=== PATIENT | female | born 1935 | race Caucasian/White ===

== ENCOUNTER → 2017-08-13 | Outpatient (CLI) | payer OTHER, MEDICARE | LOC: CIMAGING 12:44 | PROVIDERS: ATTEND Internal Medicine | DX: Z12.39 Encounter for other screening for malignant neoplasm of breast (principal); N64.4 Mastodynia | CPT/HCPCS: 76641; G0204 ==

== ENCOUNTER → 2017-10-31 | Outpatient (CLI) | payer OTHER, MEDICARE | LOC: BHFA 11:30 | PROVIDERS: ATTEND Internal Medicine Interventional Cardiology | DX: I25.10 Atherosclerotic heart disease of native coronary artery without angina pectoris (principal); I35.0 Nonrheumatic aortic (valve) stenosis ==

== ENCOUNTER → 2018-01-22 | Outpatient (CLI) | payer OTHER, MEDICARE | LOC: BHFA 10:45 | PROVIDERS: ATTEND Internal Medicine Cardiovascular Disease | DX: I35.9 Nonrheumatic aortic valve disorder, unspecified (principal); I25.10 Atherosclerotic heart disease of native coronary artery without angina pectoris ==

== ENCOUNTER 2018-02-17 06:17 | Day surgery (SDC) | payer OTHER, MEDICARE ==
[2018-02-17] MEDS ORDERED: FAMOTIDINE 20 MG TAB PO ONE (06:20)
[2018-02-17] MEDS ORDERED: diphenhydrAMINE 25 MG CAP PO ONE ×2 (06:20→06:45)
[2018-02-17] MEDS ORDERED: ASPIRIN EC 325 MG TAB PO ONE ×2 (06:20→06:45)
[2018-02-17] MEDS ORDERED: NS 1,000 ML IV ONE (06:20)
[2018-02-17] MEDS ORDERED: DIAZEPAM 5 MG TAB PO ONE (06:20)
--- NOTE | 2018-02-17 06:44 | PDPROPOC ---
Sedation Plan of Care Sedation Plan of Care: mental status noted, patient educated of risks, benefits , alternatives, patient can tolerate sedation ASA Classification: ASA 2 Planned drugs: fentanyl, midazolam Mallampati Score: Class 2 Mallampati Reference Image: Patient passed 3-3-2 rule?: Yes
--- NOTE | 2018-02-17 06:44 | PDHPUP ---
History & Physical Update H&P update statement: This history and physical update is based on an assessment of the patient which was completed after admission or registration (within 24 hours), but prior to the surgery/procedure. H&P update: H&P reviewed & patient examined, no change in patient's condition since H&P completed
[2018-02-17] MEDS ORDERED: CLOPIDOGREL BISULFATE 75 MG TAB PO ONE (06:45)
[2018-02-17] MEDS ORDERED: FAMOTIDINE 20 MG TAB ONE (06:45)
[2018-02-17] MEDS ORDERED: DIAZEPAM 5 MG TAB ONE (06:45)
--- NOTE | 2018-02-17 06:45 | CPEKG ---
Heart Rate: 65 RR Interval: 923 P-R Interval: 148 QRSD Interval: 92 QT Interval: 420 QTC Interval: 437 P [place]: 54 QRS [place]: 4 T Wave [place]: 52 EKG Severity - ABNORMAL ECG - EKG Impression: SINUS RHYTHM EKG Impression: PROBABLE LVH WITH SECONDARY REPOL ABNRM Electronically Signed By: Leif Samayoa 17-Feb-2018 13:06:43
[2018-02-17 06:59] LABS: PLATELET COUNT 185 10^3/uL (150-400)
[2018-02-17] MEDS ORDERED: LIDOCAINE 1% 300 MG/30 ML SDV ONE (07:03)
[2018-02-17] MEDS ORDERED: MIDAZOLAM 2 MG/2 ML VIAL ONE (07:03)
[2018-02-17] MEDS ORDERED: fentaNYL 100 MCG/2 ML INJ ONE (07:03)
[2018-02-17] MEDS ORDERED: IOPAMIDOL (ISOVUE-370) 150 ML BTL IV ONE (07:04)
[2018-02-17 07:22] LABS: INR 0.94 (0.83-1.16); PROTIME(PATIENT) 12.8 SEC (12.0-15.0)
[2018-02-17] MEDS ORDERED: METOPROLOL TARTRATE 5 MG/5 ML INJ ONE (07:56)
[2018-02-17] MEDS ORDERED: hydrALAZINE 20 MG/ML VIAL ONE (08:06)
[2018-02-17] MEDS ORDERED: ATROPINE SULFATE 1 MG/10 ML SYR IVP PRN (08:14)
[2018-02-17] MEDS ORDERED: NITROGLYCERIN 0.4 MG BTL SL PRN (08:14)
[2018-02-17] MEDS ORDERED: ONDANSETRON 4 MG/2 ML VIAL IVP PRN (08:14)
--- NOTE | 2018-02-17 09:02 | CPIP ---
[f rep st] INVASIVE CARDIAC PROCEDURE DATE OF PROCEDURE: 02/17/2018 REASON FOR PROCEDURE: Critical aortic stenosis, known coronary artery disease. PROCEDURE: 1. Nonselective left groin sheathogram. Seven-Japanese sheath left common vein. 2. Right heart catheterization Repton-Kristina catheter. 3. Bilateral coronary angiography. 4. Saphenous vein angiography to OM1. 5. Left internal mammary artery angiography to LAD. 6. Abdominal aortogram. Briefly, this is an 82-year-old female with history of CABG as well as critical aortic stenosis. The patient underwent a workup as an outpatient by Dr. Persaud and Dr. Russell and was deemed to be a suit able candidate for TAVR. The patient, after informed consent was obtained, was brought to [facility] where the left groin was prepped and draped in sterile fashion. Using lidocaine, a short 6-Japanese sheath l eft femoral artery verified angiographically. A 7-Japanese sheath left common vein. Through the 7-Breezy counts include [facility] beds at the [facility] sheath, a right heart catheter was advanced. RA pressure was measured to be A-wave of 5, V-wave of 3, RV pressure of systolic 32, diastolic 1, PA pressure 30 with diastolic of 8 with a mean of 13. Wedge pressure was measured to be an A-wave of 5, V-wave of 5. Cardiac output was measured to be 3. 4 by Jomar with a cardiac index of 1.9. Right heart catheter was then removed. A JL4 catheter was th en advanced to the left coronary artery. Images of the left coronary artery showed 60% ostial left m ain with no damping of pressure. There was a small diminutive AV groove circumflex with an occluded 100% OM1 proximally. The LAD gave off what appeared to be a diagonal artery proximally and was occlu ded after its proximal takeoff with some competitive flow from a graft. After imaging was obtained t he JL4 catheter was removed. The JR4 catheter was advanced to the right coronary artery. Images of the right coronary artery revealed normal ostial RCA. In the mid RCA there was a 40% to 50% lesion, which was consistent with her prior angiograms in 2016. Distally, the RP and RPLS had 20% to 30% jareth que disease. After the images were obtained, the JR4 catheter was pulled back to the 1st graft which was a saphenous vein graft to a marginal 1 artery. The saphenous vein graft ostial had approximatel y 30% disease, but no damping of pressure with good reflux. Distally the OM1 graft artery appeared t o be widely patent. The catheter was then pulled back, placed in the left subclavian artery, exchang ed out for a HEALY catheter. Angiography of left internal mammary artery showed widely patent HEALY an astomosing into the mid LAD. The LAD distally appeared to be a small vessel but patent giving off a diagonal artery in its midportion, which was healthy and free of disease. After imaging was obtained the HEALY catheter was removed. A pigtail catheter was advanced to the descending aorta. Abdominal aortogram was obtained which showed a widely patent distal ascending aorta, widely patent common exte rnal and internal iliac arteries and widely patent CFAs' bilaterally. After the imaging was obtained the pigtail catheter was removed over the 0.035 wire. Left groin was closed with manual pressure. Patient tolerated the procedure well with no complications. IMPRESSION: 1. Severe [place] coronary artery disease. 2. Patent 2/2 bypass grafts. 3. Normal right heart pressures. 4. Mildly reduced cardiac output. PLAN: Approximately 50 cc of contrast was utilized during the procedure. Patient will have CTAs of the chest, abdomen, and pelvis, as well as carotid ultrasounds performed later today. /[id number]/MODL
[2018-02-17] MEDS ORDERED: IOPAMIDOL (ISOVUE 370) 100 ML BTL IV ONE (12:29)
== END 2018-02-17 13:30 | disposition home or self-care (01) ==
LOC: FCATH 06:17
PROVIDERS: ATTEND Internal Medicine Cardiovascular Disease
PROC: B4101ZZ Fluoroscopy of Abdominal Aorta using Low Osmolar Contrast (ICD-10-PCS; principal; 2018-02-17)
PROC: B2141ZZ Fluoroscopy of Right Heart using Low Osmolar Contrast (ICD-10-PCS; principal; 2018-02-17)
PROC: B2131ZZ Fluoroscopy of Multiple Coronary Artery Bypass Grafts using Low Osmolar Contrast (ICD-10-PCS; principal; 2018-02-17)
DX: I35.0 Nonrheumatic aortic (valve) stenosis (principal); I25.10 Atherosclerotic heart disease of native coronary artery without angina pectoris; I10 Essential (primary) hypertension; E11.9 Type 2 diabetes mellitus without complications; E78.5 Hyperlipidemia, unspecified; J84.9 Interstitial pulmonary disease, unspecified; Z95.1 Presence of aortocoronary bypass graft; Z90.710 Acquired absence of both cervix and uterus
CPT/HCPCS: 71275; 74174; 75625; 93005; 93457; 93880; C1769; J0360; J1644; J2250; J3010; Q9967

== ENCOUNTER 2018-03-18 06:02 | Inpatient (IN) | payer OTHER, MEDICARE ==
[2018-03-18] MEDS ORDERED: NS 1,000 ML IV ONE (06:06)
[2018-03-18] MEDS ORDERED: ceFAZolin 2 GM/DEXTROSE 100 ML IV ONE (06:30)
--- NOTE | 2018-03-18 06:31 | PDPROPOC ---
Sedation Plan of Care Sedation Plan of Care: mental status noted, patient educated of risks, benefits , alternatives, patient can tolerate sedation ASA Classification: ASA 2 Planned drugs: other Mallampati Score: Class 2 Mallampati Reference Image: Patient passed 3-3-2 rule?: Yes
--- NOTE | 2018-03-18 06:53 | PDANEPAE ---
ANE History of Present Illness here for TAVR ANE Past Medical History - Cardiovascular History Hx Hypertension: Yes Hx Arrhythmias: No Hx Chest Pain: Yes Hx Coronary Artery / Peripheral Vascular Disease: Yes Hx CHF / Valvular Disease: Yes Hx Palpitations: No - Pulmonary History Hx COPD: No Hx Asthma/Reactive Airway Disease: No Hx Recent Upper Respiratory Infection: No Hx Oxygen in Use at Home: No Hx Sleep Apnea: No - Endocrine History Hx Diabetes: Yes Hypothyroid: No Hyperthyroid: No Obesity: no - Renal History Hx Renal Disorders: No - Chronic Pain History Chronic Pain: No ANE Review of Systems Review of Systems: - Exercise capacity Exercise capacity: <4 METS ANE Patient History - Allergies Allergies/Adverse Reactions: acetaminophen [From Vicodin] Allergy (Verified 02/12/18 10:46) "feel like a zombie" adhesive tape Allergy (Verified 02/12/18 10:46) hydrocodone [From Vicodin] Allergy (Verified 02/12/18 10:46) "feel like a zombie" meperidine HCl [From Demerol] Allergy (Verified 02/12/18 10:46) Vomiting oxycodone HCl [From Percocet] Allergy (Verified 02/12/18 10:46) Itching - Home Medications Home medications: home medication list seen and reviewed Home Medications: Aspirin [Aspirin 81mg (*)] 81 mg PO DAILY 04/14/15 [Last Taken 03/17/18] Atenolol [Tenormin 25 mg (*)] 25 mg PO HS 04/14/15 [Last Taken 03/17/18] Ranolazine [Ranexa] 500 mg PO BID 04/14/15 [Last Taken 03/17/18] guanFACINE HCL [Tenex] 2 mg PO DAILY 04/14/15 [Last Taken 03/17/18] Betahistine Powder 1 jace TP TID 02/12/18 [Last Taken Unknown] Cholecalciferol Vit D3 [Vitamin D3 (*)] 1,000 units PO DAILY 02/12/18 [Last Taken 03/17/18] Esomeprazole Magnesium [Nexium] 20 mg PO HS 02/12/18 [Last Taken 03/17/18] Herbals/Supplements -Info Only 1 ea PO DAILY 02/12/18 [Last Taken 02/16/18] Hydrochlorothiazide [HCTZ (*)] 25 mg PO DAILY 02/12/18 [Last Taken 03/17/18] Rosuvastatin Calcium [Crestor 10mg (RX)] 10 mg PO HS 02/12/18 [Last Taken ] Valsartan [Diovan (*)] 80 mg PO DAILY 02/12/18 [Last Taken 03/17/18] Levothyroxine [Synthroid 50 mcg (*)] 50 mcg PO MOTUWETHFR 03/12/18 [Last Taken 03/17/18] Levothyroxine [Synthroid 50 mcg (*)] 100 mcg PO SUSA@0330 03/12/18 [Last Taken 03/17/18] glipiZIDE [Glipizide] 5 mg PO BID 03/12/18 [Last Taken 03/17/18] - Smoking Hx Smoking Status: Never smoked ANE Labs/Vital Signs - Vital Signs Height: 160 cm Weight: 74.8 kg ANE Physical Exam - Airway Neck exam: FROM Mallampati Score: Class 1 - Pulmonary Pulmonary: no respiratory distress - Cardiovascular Cardiovascular: regular rate and rhythym, systolic murmur - ASA Status ASA Status: IV ANE Anesthesia Plan Anesthesia Plan: general endotracheal anesthesia
[2018-03-18] MEDS ORDERED: IOPAMIDOL (ISOVUE 370) 100 ML BTL IV ONE (06:57)
[2018-03-18] MEDS ORDERED: fentaNYL 100 MCG/2 ML INJ ONE (07:18)
[2018-03-18] MEDS ORDERED: MIDAZOLAM 2 MG/2 ML VIAL ONE (07:19)
[2018-03-18] MEDS ORDERED: PROPOFOL/EMULSION 500 MG/50 ML BOTTLE IV ONE (07:20)
[2018-03-18] MEDS ORDERED: PHENYLEPHRINE HCL 100 MCG/ML SYR ONE (08:15)
[2018-03-18] MEDS ORDERED: HEPARIN 10,000 UNIT/10 ML MDV (1,000 UNIT/ML) ONE (08:17)
[2018-03-18] MEDS ORDERED: SUGAMMADEX SODIUM 200 MG/2 ML VIAL IVP ONE (09:23)
[2018-03-18] MEDS ORDERED: PROTAMINE SULFATE 50 MG/5 ML VIAL IVP ONE (09:32)
[2018-03-18] MEDS ORDERED: IBUPROFEN 800 MG TAB PO PRN (09:44)
[2018-03-18] MEDS ORDERED: ONDANSETRON 4 MG/2 ML VIAL IVP PRN (09:44)
[2018-03-18] MEDS ORDERED: ATROPINE SULFATE 1 MG/10 ML SYR IVP PRN (09:44)
[2018-03-18] MEDS ORDERED: hydrALAZINE 20 MG/ML VIAL IVP PRN (09:44)
[2018-03-18] MEDS ORDERED: ONDANSETRON DISINTEGRATING 4 MG TAB PO PRN (09:44)
--- NOTE | 2018-03-18 10:24 | POSTANESTH ---
Post Anesthetic Evaluation Cardiovascular Status: Normal, Stable Respiratory Status: Normal, Stable Level of Consciousness/Mental Status: Can Participate in Eval Pain Control: Adequate, Prn Tx Ordered Nausea/Vomiting Control: Adequate, Prn Tx Ordered Complications Possibly Related to Anesthesia: None Noted
--- NOTE | 2018-03-18 10:33 | CPIP ---
[f rep st] INVASIVE CARDIAC PROCEDURE DATE OF PROCEDURE: 03/18/2018 CO-SURGEONS: 1. Edgard Russell DO. 2. Mason Lane MD. 3. Juan Lopes MD. PROCEDURE: 1. Nonselective left groin sheathogram. 2. Nonselective right groin sheathogram. 3. Upsize of right groin to 16-Cuban sheath with triple Perclose placements. 4. Left heart catheterization, aortic root angiography. 5. Placement of Medtronic CoreValve Evolut PRO 26 mm valve via the transfemoral route. HISTORY: Briefly, this is an 82-year-old female with history of bypass surgery, renal insufficiency who had worsening shortness of breath. The patient was found to have critical aortic stenosis at non invasive assessment. The patient was evaluated by CT surgery, deemed to be a suitable candidate for transfemoral TAVR. DESCRIPTION OF PROCEDURE: The patient was brought to [facility] where the patient electively intubated. 2 g of Ancef were measured, administered perioperatively. The patient was intubated successfully. SHELIA performed by Dr. Mason Lane. Temporary pace wire placed in the right IJ by Dr. Juan Lopes. A 6- Cuban sheath left femoral artery verified angiographically. A 6-Cuban sheath right femoral artery verified angiographically. Initially attempts were made to make the left common femoral artery acces s site the main body site; however, the Perclose had some difficulty securing this area. Thus, we de cided to keep this as the 8-Cuban sheath site for the pigtail and made the right common femoral carrie ry site the area for the 16-Cuban sheath. The right side was upsized to a 6-Cuban sheath after triple Perclose placements. Pigtail catheter w as advanced through the left common femoral artery to the aortic root. Through the 16-Cuban sheath in the right common femoral side. The patient was administered a total of 8000 units of heparin. Ao rtic valve was successfully crossed with AL1 catheter exchanged over a Glidewire, switched over to pi gtail catheter, switched over to Confida wire. Balloon of aortic valve was then commenced with a Z-M ed 20/40 balloon. The patient had 180 beats per minute. After that performed, the balloon was remov ed. We then proceeded with placement of Medtronic Evolut Pro 26 mm valve. This was then deployed branham ccessfully with pacing rate 100 beats per minute. After this deployed, there was trivial to mild par avalvular leak. After this was deployed, the pigtail catheter was removed. The wire in the LV was r emoved. The right groin was closed with triple Perclose placement with 8-Cuban Angio-Seal. The lef t groin was closed with the prior placed 2 Percloses and an 8-Cuban Angio-Seal. The patient tolerated the procedure well with no complications. Of note, the patient was in sinus rh ythm throughout the procedure, did have a transient run of left bundle branch with sinus rhythm and i s currently in normal sinus rhythm. IMPRESSION: Successful placement of Medtronic CoreValve Evolut Pro by the transfemoral route. PLAN: The patient will be admitted to the CV ICU. Further orders following clinical course. /[id number]/MODL
--- NOTE | 2018-03-18 10:47 | CPEKG ---
Heart Rate: 64 RR Interval: 938 P-R Interval: 160 QRSD Interval: 136 QT Interval: 504 QTC Interval: 520 P [place]: 51 QRS [place]: 0 T Wave [place]: 107 EKG Severity - ABNORMAL ECG - EKG Impression: SINUS RHYTHM EKG Impression: LEFT BUNDLE BRANCH BLOCK Electronically Signed By: Keith Gillis 18-Mar-2018 16:26:05
--- NOTE | 2018-03-18 12:26 | PDMN ---
Medical Necessity Medical necessity: IP per [facility] cpt 81536 TAVR
[2018-03-18] MEDS: LEVOTHYROXINE 50 MCG TAB PO SCH (12:34)
--- NOTE | 2018-03-18 13:34 | GOP ---
[f rep st] OPERATIVE REPORT DATE OF OPERATION: 03/18/2018 SURGEON: Edgard Russell DO MAINTENANCE PERSON: Edgard Russell DO. Mason Lane MD. PREOPERATIVE DIAGNOSIS: Critical aortic stenosis. POSTOPERATIVE DIAGNOSIS: Critical aortic stenosis. PROCEDURE PERFORMED: Transcatheter aortic valve replacement via the right common femoral artery. FINDINGS: Patient was noted to have in excess of 4.4 velocities across the valve which was quite sym ptomatic. She was consented for TAVR after diagnostic left heart catheterization revealed adequate c oronary perfusion. DESCRIPTION OF PROCEDURE: She was brought to the [facility] under general anesthetic. Both groins wer e accessed by Dr. Persaud. Catheters and wires were utilized to place the device across the aortic v alve after balloon valvuloplasty. Please see separate dictation. With rapid atrial pacing, I then d eployed the valve seen approximately 6 mm below the left and non coronary cusps without impingement o f the mitral valve. At completion of deployment, the gradients were less than 10. There was a mild perivalvular leak, which was felt to be stable and did not warrant valvuloplasty post deployment. Th e device was removed. The groins were closed by Dr. Persaud. Please see separate dictation. /[id number]/MODL
--- NOTE | 2018-03-18 15:23 | ASMTCMCOM ---
CM Note CM Note Notes: Pt is s/p a TAVR for critical aortic stenosis. PT/OT/SLT evals are pending. CM will follow for any d/c needs. Date Signed: 03/18/2018 03:23 PM Electronically Signed By:CARLO Weber
--- NOTE | 2018-03-18 16:41 | ECHO ---
[email or web address] [address] [address] Main: [phone] Fax: Transesophageal Echocardiography Name: KALPESH HANNA MR#: [id number] Study Date: 03/18/2018 Study Time: 08:03 AM Date of : 1935 Age: 82 year(s) Height: ( ) Weight: ( ) BSA: Gender: Female Examination: SHELIA Indication: TAVR Image Quality: Adequate Contrast: Requested by: Devan Persaud Heart Rate: Rhythm: BP: / Procedure Staff Market Development Director: Aidee Glynn [facility] Reading Physician: Mason Lane MD Requesting Provider: SHELIA Exam Details Patient Consent: Risks, alternatives of procedure explained to patient, informed consent obtained. Conclusions: Normal size left ventricle. Borderline concentric LV hypertrophy. Normal global systolic LV function. There is mild thickening of the mitral valve leaflets. Mild to moderate mitral regurgitation. Normal functioning aortic valve prosthesis. Pre TAVR the peak aortic velocity measured 4.4 m/s, the mean gradient was 53 mmhg, OSCAR .7 gradient is 8 mmhg and the valve post TAVR there appears to be a mild perivalvular leak as well as trivial AI. Measurements: Chambers Valvular Assessment AV/MV Valvular Assessment TV/PV Normal Normal Normal Name Value Range Name Value Range Name Value Range LVOTd 1.7 cm 1.7 cm mm AV meanP mmHg ( - ) Additional Measurements: Valvular Assessment AV/MV Name Value AR VTI: 102.0 cm Patient: KALPESH HANNA Study Date: 03/18/2018 Page 1 of 2 08:03 AM Findings: Left Ventricle: Normal size left ventricle. Borderline concentric LV hypertrophy. Normal global systolic LV function. No regional wall motion abnormality. Unable to assess diastolic dysfunction. Right Ventricle: Normal size right ventricle. Normal RV function. Left Atrium: The left atrium is normal in size. Right Atrium: The right atrium is normal in size. Mitral Valve: There is mild thickening of the mitral valve leaflets. Mild to moderate mitral regurgitation. No mitral stenosis is present. Aortic Valve: Normal functioning aortic valve prosthesis. Pre TAVR the peak aortic velocity measured 4.4 m/s, the velocity is 1.82 m/s, the to moderate AI present pre TAVR and post TAVR there appears to be a mild perivalvular leak as well as trivial AI. Tricuspid Valve: The tricuspid valve is normal in appearance and function. There is no significant tricuspid valve regurgitation. Pulmonic Valve: The pulmonic valve is normal in appearance and function. There is no pulmonic regurgitation seen. Aorta: The aorta is normal. Pericardium: No pericardial effusion. No pleural effusion. l1n (No Signature Object) Patient: KALPESH HANNA Study Date: 03/18/2018 Page 2 of 2 08:03 AM [id number]
[2018-03-18] MEDS: BETAHISTINE PO SCH ×2 (17:36→20:31)
[2018-03-18] MEDS: ROSUVASTATIN CALCIUM 10 MG TAB PO SCH (20:30)
[2018-03-18] MEDS: RANOLAZINE 500 MG TAB.ER PO SCH (20:30)
[2018-03-18] MEDS: glipiZIDE 5 MG TAB PO SCH (20:30)
[2018-03-18] MEDS: ATENOLOL 25 MG TAB PO SCH (20:32)
[2018-03-19 02:53] LABS: PLATELET COUNT 90 10^3/uL (150-400)
[2018-03-19 03:01] LABS: INR 1.15 (0.83-1.16); PROTIME(PATIENT) 14.9 SEC (12.0-15.0)
[2018-03-19] MEDS ORDERED: FUROSEMIDE 40 MG/4 ML VIAL IVP ONE (07:00)
--- NOTE | 2018-03-19 07:30 | PDCARPN ---
Cardiology Progress Note Chief Complaint: SOB Assessment/Plan: Assessment: s/p TAVR Plan: 03/19/18 07:28 stable but fatigued this AM Hgb 8.3 from baseline 12 Most likely drop from procedureal blood loss transfuse 2 u PRBC with lasix between units check echo QRS narrowed back to baseline Cr improved to 1.1 OOB IS Transfer to floor later this PM Subjective: fatigued Reviewed/Discussed With: multidisciplinary team Time Spent with Patient: greater than 25 minutes Time Spent with Patient: Greater than 25 minutes spent on this patients care, greater than 50% of time spent counseling, educating, and coordinating care regarding the above mentioned plan. Objective: Vital Signs (8 Hrs) Temp Pulse Resp BP Pulse Ox 03/19/18 06:00 64 20 130/36 H 96 03/19/18 05:00 67 22 H 127/34 H 97 03/19/18 04:00 36.7 C 68 21 H 129/32 H 97 03/19/18 03:00 68 19 117/29 L 97 03/19/18 02:00 64 11 L 122/30 H 97 03/19/18 01:00 67 140/30 H 03/19/18 00:00 36.7 C 67 20 110/35 L 98 Intake/Output (24 Hrs) 03/18/18 03/19/18 03/20/18 05:59 05:59 05:59 Intake Total 1150 Output Total 200 Balance 950 Intake: Oral (ml) 1150 Output: Urine (ml) 200 Bedpan 200 Other: Weight 74.8 kg Intake Quantity Yes Sufficient Number of Voids Bedpan 1 Toilet 3 Number of Stools Toilet 0 Result Diagrams: 03/19/18 02:45 03/19/18 02:45 - Physical Exam Constitutional: healthy appearing Eyes: PERRL Ears, Nose, Mouth, Throat: moist mucous membranes Cardiovascular: regular rate and rhythm Peripheral Pulses: 1+: femoral (R), femoral (L) Respiratory: clear to auscultate bilat Gastrointestinal: normoactive bowel sounds Genitourinary: no suprapubic tenderness Skin: no rashes Musculoskeletal: no muscular tenderness Neurologic: AAOx3 Psychiatric: cooperative ICD10 Worksheet Patient Problems: Problems Problem Status Onset Unstable angina pectoris Acute
[2018-03-19] MEDS: RANOLAZINE 500 MG TAB.ER PO SCH ×2 (08:39→21:15)
[2018-03-19] MEDS: VALSARTAN 80 MG TAB PO SCH (08:40)
[2018-03-19] MEDS: CHOLECALCIFEROL VIT D3 1,000 UNITS TAB PO SCH (08:40)
[2018-03-19] MEDS: glipiZIDE 5 MG TAB PO SCH ×2 (08:40→21:15)
[2018-03-19] MEDS: guanFACINE HCL 1 MG TAB PO SCH (08:40)
[2018-03-19] MEDS: PANTOPRAZOLE SODIUM 40 MG TAB PO SCH (08:40)
--- NOTE | 2018-03-19 08:51 | CPEKG ---
Heart Rate: 71 RR Interval: 845 P-R Interval: 172 QRSD Interval: 96 QT Interval: 436 QTC Interval: 474 P [place]: 41 QRS [place]: 5 T Wave [place]: 93 EKG Severity - NORMAL ECG - EKG Impression: SINUS RHYTHM EKG Impression: PATTIE robledo incomplete LBBB Electronically Signed By: Keith Gillis 19-Mar-2018 10:59:50
[2018-03-19] MEDS: BETAHISTINE PO SCH ×3 (08:54→21:16)
[2018-03-19] MEDS ORDERED: HYDROCHLOROTHIAZIDE 25 MG TAB PO SCH (09:00)
--- NOTE | 2018-03-19 10:09 | ECHO ---
[email or web address] [address] [address] Main: [phone] Fax: Transthoracic Echocardiogram Name: KALPESH HANNA MR#: [id number] Study Date: 03/19/2018 Study Time: 08:07 AM Date of : 1935 Age: 82 year(s) Height: 157.5 cm (62 in.) Weight: 74.39 kg (164 lb.) BSA: 1.76 m2 Gender: Female Examination: Echo Indication: Post TAVR Image Quality: Contrast: Requested by: Devan Persaud BP: 128 mmHg/97 mmHg Heart Rate: Rhythm: Normal sinus rhythm Indication: Post TAVR Procedure Staff Touch Up Edger: Geronimo Huff RDCS Reading Physician: Devan Persaud MD Requesting Provider: Conclusions: Global hypercontractility of the left ventricle. EF is 80 %. Moderate mitral valve leaflet calcification is present. Mild mitral valve regurgitation is present. Post TAVR, Normal functioning aortic valve prosthesis. No prosthesis stenosis, Trace to mild PV aortic regurgitation. There is a AV Core valve. AV Vmax is 2.0 m/s with a mean of PG of 8 mmHg. The AV max PG is 16 mmHg.. Measurements: Chambers Valvular Assessment AV/MV Valvular Assessment TV/PV Normal Normal Normal Name Value Range Name Value Range Name Value Range IVSd (2D): 1.1 cm (0.6 cm-1.1 AV Vmax: 2.02 m/s (1 m/s-1.7 PV Vmax: 1.06 m/s (0.6 m/s-0.9 cm) m/s) m/s) LVDd (2D): 4.7 cm (3.9 cm-5.3 AV maxP mmHg ( - ) PV PGmax: 4 mmHg ( - ) cm) AV meanP mmHg ( - ) LVDs (2D): 2.4 cm (2.1 cm-4 OSCAR (VTI): 1.8 cm ( - ) cm) MV E Vmax: 1.04 m/s ( - ) LVPWd (2D): 1.0 cm ( - ) MV A Vmax: 1.37 m/s ( - ) LVOTd 1.7 cm 1.7 cm mm MV E/A: 0.76 ( - ) LVEF (2D): 80 (>=54 %) MV meanP mmHg ( - ) MVA (Vmax): 1.8 m/s ( - ) Continued Measurements: Chambers Valvular Assessment AV/MV Name Value Name Value LADs: 5.0 cm MV E/E' Lateral: 17.50 LADs Lon.2 cm MV VTI: 41.50 cm Patient: KALPESH HANNA Study Date: 03/19/2018 Page 1 of 2 08:07 AM LA Area: 22.0 cm2 LA Volume: 83 ml LA Volume Index: 47.2 ml/m2 Findings: Left Ventricle: Normal size left ventricle. No LV hypertrophy. Global hypercontractility of the left ventricle. EF is 80 %. No regional wall motion abnormality. Diastolic dysfunction is present. . Right Ventricle: Normal size right ventricle. Normal RV function. Left Atrium: The left atrium is moderately dilated. Right Atrium: The right atrium is normal in size. Mitral Valve: Moderate mitral valve leaflet calcification is present. Mild mitral valve regurgitation is present. Aortic Valve: Post TAVR, Normal functioning aortic valve prosthesis. No prosthesis stenosis, Trace to mild PV aortic regurgitation. There is a AV Core valve. AV Vmax is 2.0 m/s with a mean of PG of 8 mmHg. The AV max PG is 16 mmHg.. Tricuspid Valve: The tricuspid valve is normal in appearance and function. Trivial tricuspid valve regurgitation. Pulmonic Valve: The pulmonic valve is normal in appearance and function. Aorta: The aorta is normal. Pericardium: No pericardial effusion. (No Signature Object) Patient: KALPESH HANNA Study Date: 03/19/2018 Page 2 of 2 08:07 AM [id number]
[2018-03-19] MEDS: LEVOTHYROXINE 50 MCG TAB PO SCH (10:39)
[2018-03-19] MEDS: ATENOLOL 25 MG TAB PO SCH (21:14)
[2018-03-19] MEDS: ROSUVASTATIN CALCIUM 10 MG TAB PO SCH (21:15)
[2018-03-20 06:02] LABS: INR 1.05 (0.83-1.16); PROTIME(PATIENT) 13.9 SEC (12.0-15.0)
[2018-03-20 06:03] LABS: PLATELET COUNT 87 10^3/uL (150-400)
--- NOTE | 2018-03-20 06:38 | PDCARPN ---
Cardiology Progress Note Chief Complaint: SOB Assessment/Plan: Assessment: s/p TAVR Plan: 03/19/18 07:28 stable but fatigued this AM Hgb 8.3 from baseline 12 Most likely drop from procedureal blood loss transfuse 2 u PRBC with lasix between units check echo QRS narrowed back to baseline Cr improved to 1.1 OOB IS Transfer to floor later this PM 03/20/18 06:36 doing very well NSR Echo- NL EF, NL TAVR mild PV leak Hgb improved Cr stable Patient was transfused secondary to acute blood loss anemia during TAVR as well as being baseline anemic d/c today f/u next week Subjective: doing well Reviewed/Discussed With: multidisciplinary team Time Spent with Patient: greater than 25 minutes Time Spent with Patient: Greater than 25 minutes spent on this patients care, greater than 50% of time spent counseling, educating, and coordinating care regarding the above mentioned plan. Objective: Vital Signs (8 Hrs) Temp Pulse Resp BP Pulse Ox 03/20/18 05:44 36.2 C 60 21 H 149/37 H 97 03/20/18 00:00 69 24 H 141/38 H 96 Intake/Output (24 Hrs) 03/19/18 03/20/18 03/21/18 05:59 05:59 05:59 Intake Total 1150 1475 Output Total 200 425 Balance 950 1050 Intake: Oral (ml) 1150 775 IV Intake (ml) 100 Packed Red Blood Cells ( 600 ml) Output: Urine (ml) 200 425 Bedpan 200 Toilet 425 Other: Weight 74.8 kg Intake Quantity Yes Sufficient Number of Voids Bedpan 1 Bedside Commode 3 Toilet 3 3 Number of Stools Toilet 0 Result Diagrams: 03/20/18 05:42 03/20/18 05:42 - Physical Exam Constitutional: healthy appearing Ears, Nose, Mouth, Throat: moist mucous membranes Cardiovascular: regular rate and rhythm Peripheral Pulses: 1+: femoral (R), femoral (L) Respiratory: clear to auscultate bilat Gastrointestinal: normoactive bowel sounds Genitourinary: no suprapubic tenderness Skin: no rashes Musculoskeletal: no muscular tenderness Neurologic: AAOx3 Psychiatric: cooperative ICD10 Worksheet Patient Problems: Problems Problem Status Onset Unstable angina pectoris Acute
--- NOTE | 2018-03-20 06:58 | GDS ---
[f rep st] DISCHARGE SUMMARY DISCHARGE DIAGNOSIS: Aortic stenosis. HOSPITAL COURSE: Briefly this is an 82-year-old female, with history of bypass surgery and renal ins ufficiency, who had severe symptomatic aortic stenosis. The patient was deemed to be a suitable cand idate for transfemoral TAVR. The patient underwent successful transfemoral TAVR with Medtronic CoreV alve Evolute Pro 26 mm valve via the transfemoral route. Postprocedure, the patient did well, howeve r, she did have some baseline anemia and did drop from 11.3 to 8.3 postprocedure. We transfused 2 un its PRBCs with IV Lasix and the patient responded appropriately with a hemoglobin 11.5. Of note, her creatinine dramatically improved from 1.8 to 1.1 and is currently 1.2. She has been ambulating in t he halls without problems. Blood pressure and heart rate have been stable. Echocardiogram post proc edure shows normal ventricular function, normal TAVR with mild perivalvular leak. The patient will b e discharged home this morning with her home medications. She will follow up in the office in 1 week 's time. /[id number]/MODL
[2018-03-20 07:54] VITALS: BP 152/34
[2018-03-20] MEDS: RANOLAZINE 500 MG TAB.ER PO SCH (08:12)
[2018-03-20] MEDS: VALSARTAN 80 MG TAB PO SCH (08:12)
[2018-03-20] MEDS: PANTOPRAZOLE SODIUM 40 MG TAB PO SCH (08:12)
[2018-03-20] MEDS: CHOLECALCIFEROL VIT D3 1,000 UNITS TAB PO SCH (08:12)
[2018-03-20] MEDS: glipiZIDE 5 MG TAB PO SCH (08:12)
[2018-03-20] MEDS: guanFACINE HCL 1 MG TAB PO SCH (08:12)
[2018-03-20] MEDS: BETAHISTINE PO SCH (08:12)
[2018-03-20] MEDS: LEVOTHYROXINE 50 MCG TAB PO SCH (09:02)
[2018-03-22] MEDS ORDERED: LEVOTHYROXINE 50 MCG TAB PO SCH (03:30)
== END 2018-03-20 11:00 | disposition home or self-care (01) | DRG 267 ==
LOC: FCATH 06:02 → F2N 08:29 → OBSVTOIN 09:44 → F2N 10:07
PROVIDERS: ADMIT Internal Medicine Cardiovascular Disease; ATTEND Internal Medicine Cardiovascular Disease
PROC: 02RF38Z Replacement of Aortic Valve with Zooplastic Tissue, Percutaneous Approach (ICD-10-PCS; principal; 2018-03-18)
PROC: 30233N1 Transfusion of Nonautologous Red Blood Cells into Peripheral Vein, Percutaneous Approach (ICD-10-PCS; 2018-03-20)
DX: I35.0 Nonrheumatic aortic (valve) stenosis (principal); Z00.6 Encounter for examination for normal comparison and control in clinical research program; D62 Acute posthemorrhagic anemia; D64.9 Anemia, unspecified; N28.9 Disorder of kidney and ureter, unspecified; Z95.1 Presence of aortocoronary bypass graft
CPT/HCPCS: 92610-GN; 97116-GP; 97161-GP; 97165-GO; 97530-GP; C1760; C1769; C1894; G8978-GP-CJ; G8979-GP-CI; G8980-GP-CI; G8987-GO-CI; G8988-GO-CI; G8996-GN-CH; G8997-GN-CH; G8998-GN-CH; J0690; J1644; J1940; J2250; J2270; J2370; J2704; J2720; J3010; P9016; P9021; Q9967

== ENCOUNTER → 2018-04-15 | Outpatient (CLI) | payer OTHER, MEDICARE | LOC: BHFA 10:00 | PROVIDERS: ATTEND Internal Medicine Cardiovascular Disease | DX: R53.83 Other fatigue (principal) ==

== ENCOUNTER → 2018-07-17 | Outpatient (CLI) | payer OTHER, MEDICARE | LOC: CIMAGING 11:27 | PROVIDERS: ATTEND Internal Medicine | DX: J84.9 Interstitial pulmonary disease, unspecified (principal) | CPT/HCPCS: 71046-PO ==

== ENCOUNTER 2018-07-29 10:55 | Emergency (ER) | payer OTHER, MEDICARE ==
[2018-07-29 11:33] LABS: PLATELET COUNT 200 10^3/uL (150-400)
[2018-07-29 11:39] LABS: INR 1.09 (0.83-1.16); PROTIME(PATIENT) 14.3 SEC (12.0-15.0)
--- NOTE | 2018-07-29 12:24 | EDPHY ---
H & P Time Seen by Provider: 07/29/18 11:15 HPI/ROS: HPI Low potassium. Sent by PCP. 83-year-old female by private vehicle with her . This patient has a history of hypokalemia. She is currently being managed by her primary care physician Dr. Carmen. He has prescribed her oral potassium. He called me. He stated that he was having difficulty getting her potassium levels into normal range. The patient has been complaining of generalized fatigue. She also has a history of pneumonia which has been treated. She denies cough or fever. She otherwise complains of generalized fatigue. She states that she has been having a hard time taking the oral potassium because it comes and large pills. It is not clear how compliant she has been with this supplement. ROS: Constitutional: No fever, no chills. As above. Eyes: No discharge. No changes in vision. ENT: No sore throat. No nasal congestion or rhinorrhea. Respiratory: No cough. No shortness of breath. Cardiac: No chest pain, no palpitations. Gastrointestinal: No abdominal pain, no vomiting, no diarrhea. Genitourinary: No hematuria. No dysuria or increased frequency with urination. Musculoskeletal: No back pain. No neck pain. No myalgias or arthralgias. Skin: No rashes. Neurological: No headache. No focal weakness or altered sensation. Past medical history: Type 2 diabetes, interstitial lung disease, hypertension , hyperlipidemia, hysterectomy, coronary artery disease with CABG x2, cholecystectomy, orthopedic surgeries on her rotator cuff, right hip replacement. Social history: Nonsmoker. She is here with her . No alcohol. Physical Exam: General Appearance: Alert, no distress. This patient is responding to questions appropriately and in full sentences. This patient appears well- hydrated and well-nourished. Eyes: Pupils equal and round no pallor or injection. No lid edema, erythema or injection. Respiratory: There are no retractions, lungs are clear to auscultation with good air movement bilaterally. Cardiovascular: Regular rate and rhythm. No murmur. Gastrointestinal: Abdomen is soft and nontender, no masses, bowel sounds normal. No focal tenderness at McBurney's point. No Chow sign. Neurological: Motor sensory function is grossly intact. Cranial nerves are normal. Gait is normal. Skin: Warm and dry, no rashes. Musculoskeletal: Neck is supple and nontender. Extremities are symmetrical. All joints range without pain or impingement. Psychiatric: No agitation. No depression. Database: EKG: EKG time is 11:22 a.m.; EKG shows a narrow complex normal sinus rhythm with a ventricular rate of 60. QS waves in the inferior and anterior precordial leads indicative of prior infarct. The NC, QRS, QT intervals are within normal limits. There are no ST-T wave changes indicative of ischemic or injury pattern. No evidence of right heart strain. Interpreted by me. Imaging: Chest x-ray PA and lateral; the cardiac mediastinal silhouette is unremarkable. No evidence of infiltrate or pneumothorax. Interstitial lung disease. No acute cardiopulmonary disease process noted. Interpreted by me. Procedures: Emergency department course: Triage vital signs reviewed. She is afebrile. An IV was placed. I discussed the need for IV potassium replacement at if this were to be done the patient will need to be admitted. She does not want to be admitted to the hospital. She told me that she was having a hard time swallowing the potassium pills. She wants to be discharged. I discussed alternative oral potassium replacement. She is in agreement with this plan and then follow up with her primary care physician in a few days to be re-evaluated. 12:40 p.m., I spoke with her primary care physician Dr. Carmen. I explained to him that she did not want to be admitted. Her emergency department workup and evaluation was discussed with him in detail. I will place her on an oral liquid potassium replacement protocol. He will see the patient on follow-up on for re-evaluation. He feels this is reasonable as well. This plan was discussed with the patient and her . She is in full agreement. Return to emergency department precautions were discussed with her. The importance of oral hydration was discussed. All of her questions were answered. The patient was discharged in good condition with her . Differential Diagnosis: The differential diagnosis on this patient includes but is not limited to hypokalemia, chronic renal insufficiency, generalized fatigue. Pneumonia, acute coronary syndrome, CVA unlikely. This represents a partial list of diagnoses considered. These considerations are based on history, physical exam , past history, reassessment and diagnostic testing. Smoking Status: Never smoked Constitutional: Initial Vital Signs Temperature (C) 36.7 C 07/29/18 10:59 Heart Rate 78 07/29/18 10:59 Respiratory Rate 16 07/29/18 10:59 Blood Pressure 163/51 H 07/29/18 10:59 O2 Sat (%) 90 L 07/29/18 10:59 O2 Delivery Mode Room Air O2 (L/minute) 2 Allergies/Adverse Reactions: acetaminophen [From Vicodin] Allergy (Verified 02/12/18 10:46) "feel like a zombie" adhesive tape Allergy (Verified 02/12/18 10:46) hydrocodone [From Vicodin] Allergy (Verified 02/12/18 10:46) "feel like a zombie" meperidine HCl [From Demerol] Allergy (Verified 02/12/18 10:46) Vomiting oxycodone HCl [From Percocet] Allergy (Verified 02/12/18 10:46) Itching Home Medications: Medication Instructions Recorded Aspirin [Aspirin 81mg (*)] 81 mg PO DAILY 04/14/15 Atenolol [Tenormin 25 mg (*)] 25 mg PO HS 04/14/15 Ranolazine [Ranexa] 500 mg PO BID 04/14/15 guanFACINE HCL [Tenex] 2 mg PO DAILY 04/14/15 Betahistine Powder 1 jace TP TID 02/12/18 Cholecalciferol Vit D3 [Vitamin D3 1,000 units PO DAILY 02/12/18 (*)] Esomeprazole Magnesium [Nexium] 20 mg PO HS 02/12/18 Herbals/Supplements -Info Only 1 ea PO DAILY 02/12/18 Hydrochlorothiazide [HCTZ (*)] 25 mg PO DAILY 02/12/18 Rosuvastatin Calcium [Crestor] 10 mg PO HS 02/12/18 Valsartan [Diovan (*)] 80 mg PO DAILY 02/12/18 Levothyroxine [Synthroid 50 mcg 50 mcg PO MOTUWETHFR 03/12/18 (*)] Levothyroxine [Synthroid 50 mcg 100 mcg PO SUSA@0330 03/12/18 (*)] glipiZIDE [Glipizide] 5 mg PO BID 03/12/18 Potassium Cl [Klor-Con 20 meq (*)] 20 meq PO TID #12 tab 07/29/18 Medical Decision Making - Diagnostics Imaging Results: Imaging Impressions Chest X-Ray 07/29/18 11:15 Impression: 1. No definite acute findings in the chest. 2. Interstitial lung disease. - Data Points Laboratory Results: Laboratory Results 07/29/18 11:15 07/29/18 11:15 07/29/18 07/29/18 07/29/18 11:21 11:19 11:15 WBC RBC Hgb POC Hgb 11.9 gm/dL L gm/dL (12.6-16.3) Hct POC Hct 35 % L % (38-47) MCV MCH MCHC RDW Plt Count MPV Neut % (Auto) Lymph % (Auto) Grundy % (Auto) Eos % (Auto) Baso % (Auto) Nucleat RBC Rel Count Absolute Neuts (auto) Absolute Lymphs (auto) Absolute Monos (auto) Absolute Eos (auto) Absolute Basos (auto) Absolute Nucleated RBC Immature Gran % Immature Gran # PT INR APTT POC Sodium 136 mEq/L mEq/L (135-145) Sodium POC Potassium 2.5 mEq/L L* mEq/L (3.3-5.0) Potassium POC Chloride 87 mEq/L L mEq/L (97-110) Chloride Carbon Dioxide Anion Gap POC BUN 16 mg/dL mg/dL (7-23) BUN Creatinine POC Creatinine 1.3 mg/dL H mg/dL (0.6-1.0) Estimated GFR Glucose POC Glucose 274 mg/dL H mg/dL (70-100) Calcium POC Troponin I 0.01 ng/mL ng/mL (0.00-0.08) TSH Pending 07/29/18 07/29/18 07/29/18 11:15 11:15 11:15 WBC 8.60 10^3/uL 10^3/uL (3.80-9.50) RBC 3.65 10^6/uL L 10^6/uL (4.18-5.33) Hgb 11.5 g/dL L g/dL (12.6-16.3) POC Hgb Hct 33.6 % L % (38.0-47.0) POC Hct MCV 92.1 fL fL (81.5-99.8) MCH 31.5 pg pg (27.9-34.1) MCHC 34.2 g/dL g/dL (32.4-36.7) RDW 15.4 % H % (11.5-15.2) Plt Count 200 10^3/uL 10^3/uL (150-400) MPV 9.9 fL fL (8.7-11.7) Neut % (Auto) 68.0 % % (39.3-74.2) Lymph % (Auto) 21.6 % % (15.0-45.0) Grundy % (Auto) 7.6 % % (4.5-13.0) Eos % (Auto) 1.5 % % (0.6-7.6) Baso % (Auto) 0.5 % % (0.3-1.7) Nucleat RBC Rel Count 0.0 % % (0.0-0.2) Absolute Neuts (auto) 5.85 10^3/uL 10^3/uL (1.70-6.50) Absolute Lymphs (auto) 1.86 10^3/uL 10^3/uL (1.00-3.00) Absolute Monos (auto) 0.65 10^3/uL 10^3/uL (0.30-0.80) Absolute Eos (auto) 0.13 10^3/uL 10^3/uL (0.03-0.40) Absolute Basos (auto) 0.04 10^3/uL 10^3/uL (0.02-0.10) Absolute Nucleated RBC 0.00 10^3/uL 10^3/uL (0-0.01) Immature Gran % 0.8 % % (0.0-1.1) Immature Gran # 0.07 10^3/uL 10^3/uL (0.00-0.10) PT 14.3 SEC SEC (12.0-15.0) INR 1.09 (0.83-1.16) APTT 32.4 SEC SEC (23.0-38.0) POC Sodium Sodium 136 mEq/L mEq/L (135-145) POC Potassium Potassium 2.8 mEq/L L mEq/L (3.3-5.0) POC Chloride Chloride 88 mEq/L L mEq/L (97-110) Carbon Dioxide 34 mEq/l H mEq/l (22-31) Anion Gap 14 mEq/L mEq/L (6-14) POC BUN BUN 17 mg/dL mg/dL (7-23) Creatinine 1.3 mg/dL H mg/dL (0.6-1.0) POC Creatinine Estimated GFR 39 Glucose 265 mg/dL H mg/dL (70-100) POC Glucose Calcium 7.0 mg/dL L mg/dL (8.5-10.4) POC Troponin I TSH Point of Care Test Results: Chemistry 07/29/18 07/29/18 11:21 11:19 POC Sodium 136 mEq/L mEq/L (135-145) POC Potassium 2.5 mEq/L L* mEq/L (3.3-5.0) POC Chloride 87 mEq/L L mEq/L (97-110) POC BUN 16 mg/dL mg/dL (7-23) POC Creatinine 1.3 mg/dL H mg/dL (0.6-1.0) POC Glucose 274 mg/dL H mg/dL (70-100) POC Troponin I 0.01 ng/mL ng/mL (0.00-0.08) ISTAT H&H 07/29/18 11:21 POC Hgb 11.9 gm/dL L gm/dL (12.6-16.3) POC Hct 35 % L % (38-47) Departure - Departure Disposition: Home, Routine, Self-Care Clinical Impression: Hypokalemia, Renal insufficiency, Interstitial lung disease, Fatigue Condition: Good Instructions: Hypokalemia (ED) Additional Instructions: Read and follow provided instructions. Follow-up with your primary care physician, Dr. Carmen, on as discussed for re-evaluation and reassessment of your kidney function and potassium levels. Take medication as prescribed for potassium replacement. Return to the emergency department for worsening symptoms or other serious concerns. Referrals: Jr Carmen MD [Primary Care Provider] - As per Instructions Prescriptions: Potassium Cl [Klor-Con 20 meq (*)] 20 meq PO TID #12 tab
[2018-07-29 13:08] VITALS: BP 138/49
--- NOTE | 2018-07-29 15:04 | CPEKG ---
Test Reason : OPEN Blood Pressure : / mmHG Vent. Rate : 060 BPM Atrial Rate : 061 BPM P-R Int : 173 ms QRS Dur : 100 ms QT Int : 496 ms P-R-T Axes : -26 -13 055 degrees QTc Int : 496 ms Sinus rhythm Inferior infarct, old Anterior infarct, old Lateral leads are also involved Confirmed by Daryl Jones [id number] on 07/29/2018 3:03:06 PM Referred By: Confirmed By:Daryl Jones
== END 2018-07-29 13:47 | disposition home or self-care (01) ==
DX: E87.6 Hypokalemia (principal); N28.9 Disorder of kidney and ureter, unspecified; J84.9 Interstitial pulmonary disease, unspecified; R53.83 Other fatigue
CPT/HCPCS: 82435-PO; 82565-PO; 82947-PO; 84132-PO; 84295-PO; 84484-PO; 84520-PO; 85014-PO

== ENCOUNTER → 2018-09-01 | Outpatient (CLI) | payer OTHER, MEDICARE | LOC: BHFA 09:15 | PROVIDERS: ATTEND Internal Medicine Interventional Cardiology | DX: Z95.2 Presence of prosthetic heart valve (principal) ==

== ENCOUNTER → 2018-09-29 | Outpatient (CLI) | payer OTHER, MEDICARE | LOC: FIMAGING 09:05 | PROVIDERS: ATTEND Internal Medicine | DX: R11.10 Vomiting, unspecified (principal); R05 Cough; K44.9 Diaphragmatic hernia without obstruction or gangrene ==

== ENCOUNTER → 2018-10-02 | Outpatient (CLI) | payer OTHER, MEDICARE | LOC: CIMAGING 10:00 | PROVIDERS: ATTEND Internal Medicine | DX: Z12.31 Encounter for screening mammogram for malignant neoplasm of breast (principal) | CPT/HCPCS: 36415-PO ==